=== PATIENT | female | born 1985 | race Caucasian/White ===

== ENCOUNTER 2021-12-30 19:07 | Emergency (ER) | payer MEDICAID ==
[~2021-12-30] VITALS: Ht 157.5 cm; Wt 73.0 kg
[2021-12-31 00:13] LABS: BASOPHILS % 0.3 % (0.0-2.0); EOSINOPHILS % 0.6 % (0.0-5.0); HEMOGLOBIN. 13.2 g/dL (12.0-16.0); LYMPHOCYTES % 32.2 % (20.0-50.0); MEAN CORPUSCULAR HEMOGLOBIN 27.9 pg (28.0-32.0); MEAN CORPUSCULAR VOLUME 86.6 fL (81.0-99.0); MEAN PLATELET VOLUME 8.7 fl (7.4-10.4); MONOCYTES % 4.7 % (2.0-8.0); NEUTROPHILS % 62.2 % (40.0-76.0); PLATELET 278 x1000/uL (130-400); RED BLOOD CELL COUNT 4.74 mill/uL (4.2-5.4); RED CELL DISTRIBUTION WIDTH 14.3 % (11.6-14.6)
[2021-12-31 00:14] LABS: CHLORIDE 103 mEq/L (98-107)
[2021-12-31 00:38] LABS: B-HCG QUANTITATIVE 8703 mIU/mL (<3)
[2021-12-31 01:18] VITALS: BP 125/75
== END 2021-12-31 01:18 | disposition home or self-care (01) ==
LOC: ER 19:07
DX: O46.91 Antepartum hemorrhage, unspecified, first trimester (principal); Z3A.01 Less than 8 weeks gestation of pregnancy
CPT/HCPCS: 36415; 76801; 80053; 81025; 84702; 85025; 86850; 86900; 99284

== ENCOUNTER 2022-01-02 11:09 | Emergency (ER) | payer MEDICAID ==
[~2022-01-02] VITALS: Ht 165.1 cm; Wt 89.0 kg
[2022-01-02 12:43] VITALS: BP 98/56
[2022-01-02 12:46] LABS: CLARITY URINE CLOUDY (CLEAR); COLOR URINE RED (YELLOW); KETONES URINE NEGATIVE (NEGATIVE); LEUKOCYTE ESTERASE URINE 2+ (NEGATIVE); NITRITE URINE NEGATIVE (NEGATIVE); OCCULT BLOOD URINE 3+ (NEGATIVE); PH URINE 7.5 (4.5-8.0); PROTEIN URINE 2+ (NEGATIVE); SPECIFIC GRAVITY URINE 1.021 (1.005-1.030)
[2022-01-02 13:02] LABS: BASOPHILS % 0.3 % (0.0-2.0); EOSINOPHILS % 0.4 % (0.0-5.0); HEMATOCRIT. 37.4 % (36.0-48.0); HEMOGLOBIN. 12.5 g/dL (12.0-16.0); LYMPHOCYTES % 27.6 % (20.0-50.0); MEAN CORPUSCULAR HEMOGLOBIN 28.5 pg (28.0-32.0); MEAN CORPUSCULAR VOLUME 85.5 fL (81.0-99.0); MEAN PLATELET VOLUME 8.6 fl (7.4-10.4); MONOCYTES % 6.2 % (2.0-8.0); NEUTROPHILS % 65.5 % (40.0-76.0); PLATELET 263 x1000/uL (130-400); RED BLOOD CELL COUNT 4.38 mill/uL (4.2-5.4); RED CELL DISTRIBUTION WIDTH 14.2 % (11.6-14.6)
[2022-01-02] MEDS ORDERED: NITROFURANTOIN 100MG M/M CAPSULE PO ONE (14:15)
[2022-01-02] MEDS ORDERED: NITR-87 MT (14:33)
== END 2022-01-02 14:49 | disposition home or self-care (01) ==
LOC: ER 11:09
DX: O20.0 Threatened abortion (principal); O23.41 Unspecified infection of urinary tract in pregnancy, first trimester; N39.0 Urinary tract infection, site not specified; Z3A.01 Less than 8 weeks gestation of pregnancy; O09.521 Supervision of elderly multigravida, first trimester
CPT/HCPCS: 36415; 76801; 81003; 84702; 85025; 99284

== ENCOUNTER 2022-01-17 16:46 | Emergency (ER) | payer MEDICAID ==
[~2022-01-17] VITALS: Ht 165.1 cm; Wt 87.0 kg
[~2022-01-17 16:46] MED LIST: NITR-87 MT
[2022-01-17 16:49] VITALS: BP 120/72
[2022-01-18] MEDS ORDERED: ACETAMINOPHEN 325MG TABLET PO PRN (01:30)
[2022-01-18 02:22] LABS: CLARITY URINE TURBID (CLEAR); COLOR URINE RED (YELLOW); KETONES URINE NEGATIVE (NEGATIVE); LEUKOCYTE ESTERASE URINE 3+ (NEGATIVE); NITRITE URINE POSITIVE (NEGATIVE); OCCULT BLOOD URINE 3+ (NEGATIVE); PROTEIN URINE 2+ (NEGATIVE); SPECIFIC GRAVITY URINE 1.017 (1.005-1.030); UROBILINOGEN URINE 0.2 E.U./dL (0.2-1.0)
[2022-01-18 02:39] LABS: BASOPHILS % 0.5 % (0.0-2.0); EOSINOPHILS % 2.2 % (0.0-5.0); HEMATOCRIT. 34.9 % (36.0-48.0); HEMOGLOBIN. 11.7 g/dL (12.0-16.0); LYMPHOCYTES % 39.4 % (20.0-50.0); MEAN CORPUSCULAR HEMOGLOBIN 28.3 pg (28.0-32.0); MEAN CORPUSCULAR VOLUME 84.2 fL (81.0-99.0); MEAN PLATELET VOLUME 8.3 fl (7.4-10.4); MONOCYTES % 6.4 % (2.0-8.0); NEUTROPHILS % 51.5 % (40.0-76.0); PLATELET 272 x1000/uL (130-400); RED BLOOD CELL COUNT 4.14 mill/uL (4.2-5.4); RED CELL DISTRIBUTION WIDTH 14.5 % (11.6-14.6)
[2022-01-18 02:45] LABS: CHLORIDE 106 mEq/L (98-107)
[2022-01-18 02:55] LABS: B-HCG QUANTITATIVE 76 mIU/mL (<3); HCG SCREEN POSITIVE
== END 2022-01-18 07:07 | disposition home or self-care (01) ==
LOC: ER 16:46
DX: O03.9 Complete or unspecified spontaneous abortion without complication (principal); O23.41 Unspecified infection of urinary tract in pregnancy, first trimester; N39.0 Urinary tract infection, site not specified; Z3A.01 Less than 8 weeks gestation of pregnancy
CPT/HCPCS: 36415; 76801; 80053; 81003; 84702; 84703; 85025; 86850; 86900; 87077; 87186; 99284